=== PATIENT | male | born 2005 | race Caucasian/White ===

== ENCOUNTER 2024-08-05 13:38 | Emergency (ER) | payer MEDICAID ==
[~2024-08-05] VITALS: Ht 170.2 cm; Wt 95.0 kg
[2024-08-05 13:42] VITALS: TEMP 37.1; O2SAT 99
[2024-08-05] MEDS ORDERED: CYCL5TAB3 MT (19:33)
[2024-08-05] MEDS ORDERED: NAPR-679 MT (19:33)
[2024-08-05] MEDS ORDERED: ACET-2708 MT (19:33)
[2024-08-05] MEDS ORDERED: BO1 TP (19:49)
[2024-08-05] MEDS: HYDROCODONE/ACETAMINOPHEN 5/325MG TABLET PO ONE (20:12)
[2024-08-05] MEDS: KETOROLAC 30MG/ML VIAL IM ONE (20:12)
[2024-08-05 20:14] VITALS: BP 135/74; PULSE 102; RESP 16; O2SAT 98
== END 2024-08-05 20:18 | disposition home or self-care (01) ==
LOC: ER 13:38
DX: S39.012A Strain of muscle, fascia and tendon of lower back, initial encounter (principal); M79.641 Pain in right hand; M25.521 Pain in right elbow; Z79.1 Long term (current) use of non-steroidal anti-inflammatories (NSAID); X58.XXXA Exposure to other specified factors, initial encounter; Y93.89 Activity, other specified; Y92.89 Other specified places as the place of occurrence of the external cause; Y99.8 Other external cause status
CPT/HCPCS: 73080; 73130; 96372; 99284; J1885; Z7610; A4565